=== PATIENT | male | born 1985 | race Caucasian/White ===

== ENCOUNTER 2025-09-05 21:41 | Emergency (ER) | payer BC, SELFPAY ==
--- NOTE | 2025-09-05 | ECG_ITS ---
Test Reason : CP Blood Pressure : */* mmHG Vent. Rate : 76 BPM Atrial Rate : 76 BPM P-R Int : 148 ms QRS Dur : 92 ms QT Int : 368 ms P-R-T Axes : 81 88 66 degrees QTcB Int : 414 ms Normal sinus rhythm Possible Left atrial enlargement Borderline ECG No previous ECGs available Referred By: Generic ED Physician Electronically Signed By: JAD POWELL MD
[2025-09-05 22:01] VITALS: BP 139/80; PULSE 90; O2SAT 100; BMI 18.4
--- NOTE | 2025-09-05 22:08 | PC.NURSE ---
pt avani from home, lives alone, reports years of no sleep, taking melatonin with no success. EMS reports pt originally c/o palpitations and elevated HR. EMS reported vague SI statements; if i don't make it out of this that's fine , pt denies SI/HI to this RN.
[2025-09-05 22:12] LABS: Hematocrit 42.2 % (42.0-52.0); Hemoglobin 14.9 g/dl (14.0-18.0); Imm Gran Abs Auto 0.00 X10*3/uL (0.00-0.03); Imm Gran Pct Auto 0.0 % (0.0-0.4); Lymphocytes Absolute Auto 0.8 X10*3/uL (1.2-4.9); MANUAL DIFF FLAG NO; Mean Corpuscular HGB Conc 35.3 g/dl (31.0-36.0); Mean Corpuscular Hemoglobin 31.0 pg (27.0-33.0); Mean Corpuscular Volume 87.7 fL (80.0-98.0); NRBC Abs Auto 0.000 X10*3/uL (0.0-0.012); NRBC Pct Auto 0.0 /100WBC (0.0-0.2); Platelet Count 218 X10*3/uL (160-400); Red Blood Count 4.81 X10*6/uL (4.60-5.80); White Blood Count 4.1 X10*3/uL (4.8-10.8)
--- NOTE | 2025-09-05 22:14 | ED_ITS ---
[facility] - General Adult General Chief complaint: Anxiety Stated complaint: Ax tachy palpitations POC 224, stess lack of sleep Time Seen by Provider: 09/05/25 22:11 Source: patient Mode of arrival: ambulatory Limitations: no limitations History of Present Illness ED Provider: Dr. Lopez HPI narrative: 40-year-old male presented hospital today for evaluation of anxiety insomnia and tachycardia. Patient stated that he has tried melatonin and sleep a without any alleviation. Patient is feeling tachycardic. He stated that he has not been able to sleep due to anxiety. He had a feeling of tachycardia with some chest pain therefore he called the ambulance to come to the ER for evaluation today. Related Data Previous Rx's ?Medication ?Instructions ?Recorded lorazepam 0.5 mg tablet (Ativan) 0.5 mg PO BEDTIME PRN sleep 7 days 09/06/25 #7 tabs Allergies Allergy/AdvReac Type Severity Reaction Status Date / Time No Known Allergies Allergy Verified 09/05/25 22:04 Review of Systems 2 Review of Systems: Pertinent review of systems as mentioned in HPI. All other system otherwise negative. [facility] Past Medical History [facility] Narrative: Medical history as mentioned in HPI Social History Social History Use of substances other than those prescribed or required for medical reasons: Yes Substance Use Type: Marijuana Advance Directives: No Advance Directives Information Provided: No Physical Exam ED Exam Exam: General: Pleasant, no distress, interacting appropriately Head: Normacephalic, atraumatic ENT: oral mucosa moist, neck supple, no tracheal deviation Cardiovascular: regular rate, regular rhythm, no murmurs, rubbing, gallops Respiratory: CTAB, no wheeze, rales, rhonchi Gastrointestinal: Soft, non distended, non tender, non guarding Skin: Warm and dry Psychiatric: Appropriate mood and thoughts Vital Signs: Vital Signs - 24 hr 09/05/25 22:15 09/06/25 01:33 Temperature 98.1 F 98.9 F Pulse Rate 75 79 Respiratory Rate 18 18 Blood Pressure 104/73 103/65 Pulse Oximetry 98 98 Oxygen Delivery Method Room Air Room Air BMI result Body Mass Index 18.4 Medications Administered Discontinued Medications Generic Name Dose Route Start Last Admin Trade Name Freq PRN Reason Stop Dose Admin Lorazepam 0.5 mg 09/05/25 22:46 09/05/25 22:58 Lorazepam 0.5 Mg Tablet PO 09/05/25 22:47 0.5 mg ONCE ONE Administration Medical Decision Making Medical Decision Making [facility] Narrative: 40-year-old male presented hospital today for an evaluation insomnia and tachycardia. Patient has no leukocytosis, patient's bilirubin is elevated at 1.4 however he has no abdominal pain. Troponins negative. Patient's EKG shows normal sinus rhythm. No signs of tachy cardiac arrhythmia. Patient was given some p.o. Ativan. He patient states he did get some sleep. He does feel better. We will plan to discharge patient with number for behavioral health primary care referral. Short course of p.o. Ativan we will be given to the patient to take as needed for anxiety. Differential Diagnosis Differential Diagnoses: The differential diagnosis associated with the presentation includes Anxiety, arrhythmia, insomnia Lab Data [facility] Lab Attestation statement: I reviewed the patient's lab results. 09/05/25 22:07 09/05/25 22:07 Labs: Lab Results 09/05/25 Range/Units 22:07 WBC 4.1 L (4.8-10.8) X10*3/uL RBC 4.81 (4.60-5.80) X10*6/uL Hgb 14.9 (14.0-18.0) g/dl Hct 42.2 (42.0-52.0) % MCV 87.7 (80.0-98.0) fL MCH 31.0 (27.0-33.0) pg MCHC 35.3 (31.0-36.0) g/dl RDW 12.1 (11.0-16.0) % Plt Count 218 (160-400) X10*3/uL MPV 9.8 (9.4-12.4) fL Immature Gran % (Auto) 0.0 (0.0-0.4) % Neut % (Auto) 73.1 H (45-73) % Lymph % (Auto) 18.4 L (20-40) % [place] % (Auto) 7.1 (2-11) % Eos % (Auto) 0.7 (0-4) % Baso % (Auto) 0.7 (0-2) % Lymph # (Auto) 0.8 L (1.2-4.9) X10*3/uL [place] # (Auto) 0.3 (0.1-1.2) X10*3/uL Eos # (Auto) 0.0 (0.0-0.4) X10*3/uL Baso # (Auto) 0.0 (0.0-0.2) X10*3/uL Abs Immat Gran (auto) 0.00 (0.00-0.03) X10*3/uL Absolute Neuts (auto) 3.0 (2.0-8.3) x10*3/uL Absolute Nucleated RBC 0.000 (0.0-0.012) X10*3/uL Nucleated RBC % (auto) 0.0 (0.0-0.2) /100WBC Sodium 139 (135-145) mmol/L Potassium 3.6 (3.3-5.1) mmol/L Chloride 106 (96-108) mmol/L Carbon Dioxide 24 (22-29) mmol/L Anion Gap 13 (12-20) BUN 9 (9-16) mg/dL Creatinine 1.02 (0.5-1.4) mg/dL Estim Creat Clear Calc 83.7 Estimated GFR > 60 Random Glucose 162 H (60-115) mg/dL Calcium 9.0 (8.4-10.2) mg/dL Total Bilirubin 1.4 H (0.0-1.0) mg/dL AST 20 (5-37) U/L ALT 18 (0-40) U/L Alkaline Phosphatase 41 (39-117) U/L Troponin I High Sens < 2.7 (<3.5-35.0) ng/L Total Protein 6.8 (6.5-8.0) g/dL Albumin 4.2 (3.5-5.0) g/dL Influenza Type A (PCR) NEGATIVE (Negative) Influenza Type B (PCR) NEGATIVE (Negative) RSV RNA Qual (PCR) NEGATIVE (Negative) SARS-CoV-2 RNA (RT-PCR) NEGATIVE (Negative) Independent Interpretation I performed an independent interpretation of an: EKG Discharge Plan Discharge Clinical Impression: Insomnia Qualifiers: Insomnia type: unspecified Qualified Code(s): G47.00 - Insomnia, unspecified Patient Disposition: Home, Self-Care Additional Instructions: You were seen in our Emergency Department today for treatment of anxiety. It is important after your visit that you follow up with either your behavioral health provider within 7 days.?They may help with your insomnia the most. If you have trouble finding a therapist you can reach out to [address] [phone] The National Suicide and Crisis Lifeline can be reached 7 days a week 24 hours a day.? Call 988 to speak with someone.? Return for any worsening symptoms or concerns such as thoughts of self harm or harm to others. Please call 911 if you feel your mental health is worsening.? Prescriptions: New lorazepam [Ativan] 0.5 mg tablet 0.5 mg PO BEDTIME PRN (Reason: sleep) 7 Days Qty: 7 0RF Referrals: [facility] Primary Care, Xavier Mott [Provider Group, Primary Care] Interventions: ED Discharge Assessment Last Done: 09/06/25 01:33 Discharge Date/Time: 09/06/25 01:34 Print Language: [place]
[2025-09-05 22:15] VITALS: BP 104/73; PULSE 75; RESP 18; TEMP 36.7; O2SAT 98
[2025-09-05 22:26] LABS: Alanine Aminotransferase 18 U/L (0-40); Albumin Level 4.2 g/dL (3.5-5.0); Alkaline Phosphatase 41 U/L (39-117); Anion Gap 13 (12-20); Aspartate Amino Transferase 20 U/L (5-37); Blood Urea Nitrogen 9 mg/dL (9-16); Calcium 9.0 mg/dL (8.4-10.2); Carbon Dioxide 24 mmol/L (22-29); Chloride 106 mmol/L (96-108); Creatinine Clr Calc Pharmacy 83.7; Estimated Glomerular Filt Rate > 60; Potassium 3.6 mmol/L (3.3-5.1); Sodium 139 mmol/L (135-145); Total Protein 6.8 g/dL (6.5-8.0)
[2025-09-05 22:34] LABS: Troponin-I High Sensitivity < 2.7 ng/L (<3.5-35.0)
--- OUTSIDE RECORDS SUMMARY | 2025-09-05 22:34 | XMS_ITS | Clinical Summary ---
Author Organization [facility] Address [address] [place] [phone] Phone Care Team Providers Care Dado Operator Name Role Phone Pcp, Unknown Primary Care Provider Unavailabl e Allergies No known active allergies Medications No known medications Active Problems No known active problems Social History Tobacco Use Types Packs/Day Years Used Date Smoking Tobacco: Never Assessed Education Answer Date Recorded Are you interested in more education? Not on elyssa e 01/01/2024 Are you concerned about learning? Not on file 01/01/2024 No 01/01/2024 No 01/01/2024 Digital Access Answer Date Recorded No 01/01/2024 No 01/01/2024 Reliable internet access at home? Not on file 01/01/2024 Device with a working camera? Not on file Sex and Gender Information Value Date Recorded Sex Assigned at Not on file Legal Sex Male 9:14 AM EDT Gender Identity Not on file Sexual Orientation Not on file Last Filed Vital Signs Vital Sign Reading Time Taken Comments Blood Pressure 116/78 01/01/2024 9:33 AM EDT Pulse 82 01/01/2024 9:33 AM EDT Temperature 36.8 C (98.2 F) 01/01/2024 9:33 AM EDT Respiratory Rate 18 01/01/2024 9:33 AM EDT Oxygen Saturation 99% 01/01/2024 9:33 AM EDT Inhaled Oxygen Concentration - - Weight - - Height - - Body Mass Index - - Plan of Treatment Health Maintenance Due Date Last Done Comments Adult Td,Tdap Booster 1985 LIPID PANEL 1985 DEPRESSION SCREENING 1997 SMOKING Hx and SMOKELESS TOB ACCO SCREENING 1998 HEPATITIS C SCREENING 2003 HIV ONE-TIME SCREENING (18-6 5 YEARS) 2003 INFLUENZA VACCINE (#1) 2025 COVID-19 VACCINE (2024-2 6 season) 2025 HEPATITIS A VACCINES Aged Out No long er eligible based on patient's age to complete this topic HIB VACCINES Aged Out No longer eligi ble based on patient's age to complete this topic MENINGOCOCCAL VACCINES (ACWY) Aged Out No longer eligible based on patient's age to complete this topic MENINGOCOCCAL VACCINES (B) Aged Out N o longer eligible based on patient's age to complete this topic PNEUMOCOCCAL VACCINES (0-49 years) Aged Out No longer eligible based on patient's age to complete this topic Medical Devices Not on file Insurance [address] [place] [address] [employer] [address] [place] [address] [email or web address] [facility] [employer] [facility] [employer] [facility] Care Teams Dado Operator Relationship Specialty Start Date End Date Pcp, Unknown PCP - General 01/01/24 Additional Source Comments The information contained in this document represents components of the legal health record. It is not the complete legal health record.[facility]
[2025-09-05 22:52] LABS: Resp Syncy Virus RNA Qual PCR NEGATIVE (Negative); SARS COV2 PCR INHOUSE NEGATIVE (Negative)
--- NOTE | 2025-09-05 22:58 | PC.NURSE ---
pt medicated per MAR
[2025-09-06 01:33] VITALS: BP 103/65; PULSE 79; RESP 18; TEMP 37.2; O2SAT 98
== END 2025-09-06 01:34 | disposition home or self-care (01) ==
PROVIDERS: Emergency Provider Student in an Organized Health Care Education/Training Program
DX: G47.00 Insomnia, unspecified (principal); F41.9 Anxiety disorder, unspecified; R00.0 Tachycardia, unspecified; Z03.818 Encounter for observation for suspected exposure to other biological agents ruled out
CPT/HCPCS: 36415; 80053; 84484; 85025; 87637; 93005; 99284

== ENCOUNTER → 2025-09-05 22:10 | Outpatient (BNV) | payer BC, SELFPAY | PROVIDERS: Emergency Provider Student in an Organized Health Care Education/Training Program; Visit Provider Internal Medicine Cardiovascular Disease | DX: R07.9 Chest pain, unspecified (principal) | CPT/HCPCS: 93010 ==